=== PATIENT | male | born 1990 | race Caucasian/White ===

== ENCOUNTER 2017-12-22 01:09 | Emergency (ER) | payer SELFPAY ==
[~2017-12-22] VITALS: Ht 170.2 cm; Wt 99.8 kg
[2017-12-22 01:11] VITALS: BP 150/99
--- NOTE | 2017-12-22 01:21 | NUR ---
PT TAKEN TO BED 11
--- NOTE | 2017-12-22 01:23 | NUR ---
PATIENT PRESENTS TO ED WITH C/O FEVER/VOMITTING/DIARRHEA . PT SKIN IS PINK/WARM/DRY; AAOX4 WITH EVEN AND STEADY GAIT; LUNGS CLEAR BL; HR EVEN AND REGULAR; PT DENIES ANY FEVER, CP, SOB, OR COUGH AT THIS TIME; PATIENT STATES PAIN OF 0/10 AT THIS TIME; PATIENT POSITIONED FOR COMFORT; HOB ELEVATED; BEDRAILS UP X2; BED DOWN. ER MD MADE AWARE OF PT STATUS.
[2017-12-22] MEDS ORDERED: ONDANSETRON 4 MG/2 ML VIAL IVP ONE (01:35)
[2017-12-22] MEDS ORDERED: NACL 0.9% 1,000 ML IV ONE (01:35)
[2017-12-22] MEDS ORDERED: IBUPROFEN 800 MG TAB PO ONE (01:35)
[2017-12-22] MEDS ORDERED: IBUPROFEN 800 MG TAB ONE (01:50)
[2017-12-22] MEDS ORDERED: ONDANSETRON 4 MG/2 ML VIAL ONE (01:50)
--- NOTE | 2017-12-22 03:05 | NUR ---
IV removed, catheter intact and site benign. Applied folded 4x4 gauze and tape to stop bleeding.
--- NOTE | 2017-12-22 03:08 | NUR ---
Patient discharged with v/s stable. Written and verbal after care instructions given and explained. Patient alert, oriented and verbalized understanding of instructions. Ambulatory with steady gait. All questions addressed prior to discharge. ID band removed. Patient advised to follow up with PMD. Rx of ZOFRAN 4MG given. Patient educated on indication of medication including possible reaction and side effects. Opportunity to ask questions provided and answered.
[2017-12-22 03:09] VITALS: BP 140/84
== END 2017-12-22 03:08 | disposition home or self-care (01) ==
LOC: MED 01:09
DX: T62.91XA Toxic effect of unspecified noxious substance eaten as food, accidental (unintentional), initial encounter (principal); R11.2 Nausea with vomiting, unspecified; R19.7 Diarrhea, unspecified; R50.9 Fever, unspecified; J02.8 Acute pharyngitis due to other specified organisms; Y92.89 Other specified places as the place of occurrence of the external cause
CPT/HCPCS: 36415; 87081; 87804; 96361; 96374; 99284; J2405